=== PATIENT | female | born 1980 | race Two or more races ===

== ENCOUNTER 2016-12-12 11:56 | Emergency (ER) | payer OTHER ==
[~2016-12-12] VITALS: Ht 152.4 cm; Wt 70.4 kg
[~2016-12-12 11:56] MED LIST: GLYB2.5T4 PO; LEVOTHY; PREN1TAB47 PO; levothyroxine PO
[2016-12-12 12:00] VITALS: BP 131/79; PULSE 74; RESP 18; O2SAT 100
--- NOTE | 2016-12-12 12:35 | ED.REPORT ---
HPI- Female Date of Service Dec 12, 2016 ED Provider: Betzy Dasilva MD The patient is a 36 year old female 9 weeks ( A2) who presents to the ED due to spotting earlier today. She was going to the bathroom at 1000 today and she found very dark blood in her underpants. Pt denies hematuria and abdominal cramping. She confirms a slight burning sensation when she pees. Pt is extremely anxious and tearful. Nursing Notes Stated Complaint: 9 WEEKS /SPOTTING Chief Complaint: Female Abdominal Pain Nursing Notes Reviewed: Yes Allergies: Coded Allergies: No Known Allergies (Verified , 07/11/14) Scheduled ([levothyroxine]) 112 MCG PO DAILY Vit/Fe Fumarate/Fa-Expunged Drug, Do (-Expunged Drug, Do Not Renew!) 1 Tab Tablet 1 PO DAILY glyBURIDE-Expunged Drug, Do Not Renew! (Diabeta-Expunged Drug, Do Not Renew!) 2.5 Mg Tablet 2.5 MG PO AM Miscellaneous Medications ([levothy]) General Time Seen by MD: 12:29 Chief Complaint Vaginal bleeding... (Mild) Hx Obtained From: Patient Arrived By: Walk-in Sudden in Onset?: Yes Onset Occurred: Just prior to arrival Symptom Duration: Since onset Severity: Current: No pain currently Status: Positive - home urine HCG Sexual History / Control: Reports Pt is sexually active : 5 Para: 2 Abortions: 2 Recent Healthcare: No recent doctor visit, No recent hospitalization Similar Sx Previous: No Past Medical History Past Medical History A2 Past Surgical History Reports: (2) Smoking History Never Smoker Social History Other Social History: , Local resident Ambulatory Status Independent Review of Systems Female: Reports: Dysuria (slight burning), , Vaginal bleeding - abnl , Denies: Hematuria Complete sys rev & neg: except as marked. Physical Exam Initial Vital Signs Vital Signs (First) Date Time Temp Pulse Resp B/P Pulse Ox O2 Delivery O2 Flow Rate FiO2 12/12/16 12:00 36.0 74 18 131/79 100 Room Air Initial VS: Reviewed Head / Eyes: Atraumatic, Normocephalic, PERRL ENT: Mucous membranes moist, Conjunctiva normal, No scleral icterus Neck: Supple, Non-tender, Full range of motion Respiratory: Breath sounds normal, Clear to auscultation, No respiratory distress Cardiovascular: Regular rate & rhythm, Heart sounds normal, Intact distal pulses Abdomen / GI: Soft, Non-tender, No guarding, No rebound, No distention Extremities: Vascular intact, Neuro intact, No swelling, No tenderness Skin: Warm, Dry, No cyanosis Neurologic: Alert, Oriented, Nonfocal Psychiatric: Mood/affect normal, Behavior normal, Normal thought content Female Genitourinary: Atraumatic Bedside ultra sound showed pull, no heartbeat, no identifiable features General/Constitutional: Awake, Alert Behavior: Positive: Anxious, Tearful Interpretation & Diagnostics Lab Results Interpretation Test 12/12/16 12:19 Hold Urine Received (Received) Re-Eval/Medical Decision Re-Evaluation/Progress : Time of Eval: 13:58 Re-Evaluation/Progress Note: Informed the patient that the results of the ultrasound revealed a miscarriage. Counseled Regarding: Diagnosis, Lab results, Need for follow-up, When/why to return to ED Discharge & Departure Shift Change Sign-Out Patient Care Transferred: No ( ) Impression: Primary Impression: Missed Disposition: Home Discharge Condition All VS Reviewed: Yes Condition: Stable Additional Instructions: I am sorry to tell you will have a miscarriage. Your ultrasound did not show a heartbeat and the baby was only 7 weeks in size. You did nothing wrong to cause this, there was nothing you could have done to prevent the miscarriage. Over the next few days to weeks, you will experience some bleeding and cramping , which will feel like a heavy menstrual period. The cramping can be painful. Take 600 mg Ibuprofen to help with the pain. Schedule a follow up appointment with your primary care physician and OBGYN. It is possible for you to become again. Return to the Emergency Department if you experience any new or worsening symptoms. We are sorry for your loss. Referrals: Karma Garcia MD (PCP) Scribe Attestation Portion of this note were transcribed by William Wilson. I, Dr. Dasilva, personally performed the history, physical exam, and medical decision-making: I reviewed and confirmed the accuracy for the information in the transcribed note. Signed by: jose Coyle, 12/12/16 1500 copies to: Karma Garcia MD, Shawna L MD Dec 12, 2016 12:35 WILLIAM WILSON Dec 12, 2016 12:54
--- NOTE | 2016-12-12 14:54 | DRSVH ---
PROCEDURE: US OB<14 WKS+OB TRANSVAG INDICATIONS: possible miscarriage OUTSIDE/PRIOR DATING DATA: Last menstrual period (LMP): 10/10/16 LMP-based estimated date of delivery (HYUN): 07/17/17. First dating scan (date and location): 12/12/16. Estimated date of delivery (HYUN) from first dating scan: 07/30/17. TECHNIQUE: Real-time scanning was performed of the fetus and maternal pelvic organs, with image documentation. Endovaginal scanning was also performed to better visualize the fetus and maternal ovaries. COMPARISON: None. FINDINGS: Embryo: [employer] Ultrasound Procedure Report Early Gestation [employer] Rump Length: 1.09 cm Gestational Age (CRL): 7 weeks, 1 day Summary Fetus Summary Heart Rate: No heart tones observed with real-time or M-mode tracing. Comments: A normal yolk sac is noted. No perigestational bleeds. Measurement variability in dating: +/- 4 weeks by LMP, +/- 7 days by mean sac diameter (use before 6 weeks gestation if crown-rump length not able to be measured), +/- 5 days by crown-rump length (6-12 weeks gestation). Maternal organs: Ovaries within normal limits, with right corpus of the cyst measure roughly 2.5 cm. . Limited images through the kidneys demonstrate no hydronephrosis. IMPRESSION: Intrauterine gestation is identified with no definite cardiac activity at this time. Rec ommend short-term followup pelvic ultrasound in 1 week to assess viability as findings are susp icious for early demise. Dr. Dasilva given results 1315 hrs. on 12/12/2016 Dictated by: Alin Conn RR Interpreted: Sidney Dewey MD on 12/12/2016 at 14:50 Transcribed by: GARY on 12/12/2016 at 14:53 Approved by: Jose Eduardo Dewey M.D. on 12/12/2016 at 16:21
== END 2016-12-12 15:05 | disposition home or self-care (01) ==
LOC: SED 11:56
DX: O02.1 Missed abortion (principal); Z3A.09 9 weeks gestation of pregnancy